=== PATIENT | male | born 1940 | race Caucasian/White ===

== ENCOUNTER 2017-05-19 12:29 | Inpatient (IN) | payer MEDICARE, BC, OTHER ==
[~2017-05-19] VITALS: Ht 170.2 cm; Wt 122.7 kg
[2017-05-19] MEDS: PANTOPRAZOLE 40MG INJ (PROTONIX) (C9113) IV SCH (09:00)
[2017-05-19] MEDS: ENOXAPARIN 40 MG/0.4 ML SYRINGE (J1650) SC SCH (09:00)
[2017-05-19] MEDS ORDERED: LEVI20TA39 PO (12:42)
[2017-05-19] MEDS ORDERED: CAND16TA7 PO (12:42)
[2017-05-19] MEDS ORDERED: METF500T13 PO (12:42)
[2017-05-19] MEDS ORDERED: SIMV20TA2 PO (12:42)
[2017-05-19] MEDS ORDERED: TRIA37.53 PO (12:42)
[2017-05-19] MEDS ORDERED: FLOM5CAP PO (12:42)
[2017-05-19] MEDS ORDERED: NS 1,000 ML IV ONE (13:15)
[2017-05-19] MEDS ORDERED: ONDANSETRON 4MG/2ML VIAL (J2405) IV ONE (13:15)
[2017-05-19] MEDS ORDERED: GASTROGRAFIN SOLUTION 30ML (Q9963) As Ordered ONE (13:36)
[2017-05-19 13:49] LABS: BASO % 0.5 % (0.0-1.0); EOS # 0.1 K/mm3 (0.0-0.50); EOS % 1.4 % (0.0-3.0); LARGE UNSTAINED CELL # 0.2 K/mm3 (0.0-0.4); LARGE UNSTAINED CELL % 2.9 % (0.0-4.0); LYMPH # 1.7 K/mm3 (1.5-4.5); LYMPH % 24.2 % (24.0-44.0); MEAN CORPUSCULAR HEMOGLOBIN 33.5 pg (27.0-33.0); MEAN CORPUSCULAR HGB CONC 35.6 g/dl (32.0-36.5); MEAN CORPUSCULAR VOLUME 94.1 fl (80.0-96.0); MONO # 0.8 K/mm3 (0.0-0.8); MONO % 10.9 % (0.0-5.0); NEUTROPHILS # 4.2 K/mm3 (1.8-7.7); NEUTROPHILS % 60.2 % (36.0-66.0); PLATELET COUNT, AUTOMATED 254 k/mm3 (150-450); RED CELL DISTRIBUTION WIDTH 12.1 % (11.5-14.5); WHITE BLOOD COUNT 6.9 K/mm3 (4.0-10.0)
[2017-05-19 14:23] LABS: ALBUMIN 3.6 GM/DL (3.2-5.2); ALBUMIN/GLOBULIN RATIO 0.86 (1.00-1.93); ALKALINE PHOSPHATASE 59 U/L (45-117); ALT/SGPT 44 U/L (12-78); ANION GAP 8 MEQ/L (8-16); AST/SGOT 17 U/L (15-37); BILIRUBIN,DIRECT 0.2 MG/DL (0.0-0.2); BILIRUBIN,TOTAL 0.5 MG/DL (0.2-1.0); BLOOD UREA NITROGEN 17 MG/DL (7-18); CALCIUM LEVEL 8.6 MG/DL (8.8-10.2); CARBON DIOXIDE LEVEL 26 MEQ/L (21-32); CHLORIDE LEVEL 102 MEQ/L (98-107); CREATININE FOR GFR 0.96 MG/DL (0.70-1.30); GLOMERULAR FILTRATION RATE > 60.0 (>42); GLUCOSE, FASTING 135 MG/DL (83-110); POTASSIUM SERUM 3.8 MEQ/L (3.5-5.1); SODIUM LEVEL 136 MEQ/L (136-145); TOTAL PROTEIN 7.8 GM/DL (6.4-8.2)
[2017-05-19] MEDS ORDERED: GASTROGRAFIN SOLUTION 30ML (Q9963) PO ONE ×2 (14:30)
[2017-05-19] MEDS ORDERED: ISOVUE-370 76% 100ML VIAL (Q9967) As Ordered ONE (14:42)
--- NOTE | 2017-05-19 15:55 | REP ---
CT ABDOMEN AND PELVIS WITH ORAL AND IV CONTRAST: TECHNIQUE: Axial noncontrast images through the abdomen followed by contrast-enhanced images through the abdomen and pelvis using 100 mL Isovue 370 intravenous contrast material, with coronal and sagittal reformations. Visualized lung bases demonstrate no infiltrate. The liver demonstrates diffuse fatty infiltration. Patient has had a prior cholecystectomy. A tiny calcified granuloma is seen in the spleen, Adrenals, pancreas and kidneys are unremarkable. There is no hydronephrosis. There is no abdominal aortic aneurysm with mild atherosclerotic calcifications noted. There is no adenopathy, free air, or free fluid. There are several mildly dilated small bowel loops on both sides of the abdomen. This may indicate some degree of ileus or partial small bowel obstruction. The colon is not thickened or dilated. No pelvic mass is seen. There appears to be a small left inguinal hernia containing fat and a small amount of fluid. IMPRESSION: Several mildly dilated small bowel loops in the abdomen may indicate some degree of small bowel ileus versus partial small bowel obstruction. No free air or free fluid. Signed by Fernandez Sarah MD 05/19/2017 05:10 P
[2017-05-19] MEDS ORDERED: ACETAMINOPHEN TAB 650MG DOSE (2X325MG) PO PRN (17:00)
[2017-05-19] MEDS ORDERED: ONDANSETRON 4MG/2ML VIAL (J2405) IV PRN (17:00)
[2017-05-19] MEDS ORDERED: ASPI1TAB PO (17:19)
[2017-05-19] MEDS ORDERED: VITA-121 PO (17:19)
[2017-05-19] MEDS ORDERED: CINN500T PO (17:19)
[2017-05-19] MEDS ORDERED: MAGN400T5 PO (17:19)
[2017-05-19] MEDS ORDERED: VITMTA PO (17:19)
[2017-05-19 19:50] VITALS: BP 136/96
[2017-05-19] MEDS: LR 1,000 ML IV SCH (21:42)
[2017-05-19] MEDS: MORPHINE 2 MG/ML 1ML SYRINGE IV PRN (21:42)
[2017-05-19 22:00] VITALS: BP 130/76
[2017-05-20] MEDS: LR 1,000 ML IV SCH ×3 (00:57→14:37)
[2017-05-20] MEDS: MORPHINE 2 MG/ML 1ML SYRINGE IV PRN (05:26)
[2017-05-20 06:00] VITALS: BP 148/73
--- NOTE | 2017-05-20 08:19 | IPNPDOC ---
Subjective General Date/Time Seen The patient was seen on 05/20/17 at 08:13. Subject Chief Complaint/History The patient is a 77-year-old male admitted with a reason for visit of Partial Small Bowel Obstruction. Reports feeling better, passing flatus, have an urge to go to bathroom and move his bowels. Denies nausea. Reports pain and swelling on right hand from gout. Current Medications Current Medications Current Medications Acetaminophen (Tylenol Tab) 650 mg Q4HP PRN PO MILD PAIN or TEMP > 101; Start 05/19/17 at 17:00; Stop 06/18/17 at 16:59 Enoxaparin Sodium (Lovenox) 40 mg DAILY SC ; Start 05/19/17 at 09:00; Stop 05/24 at 08:59 Home Med (Med Rec Complete!) ASDIRECTED XX ; Start 05/19/17 at 17:30; Stop 08/26 at 17:42; Status DC Lactated Ringer's 1,000 ml @ 125 mls/hr Q8H IV Last administered on 05/19/17t 21:42; Start 05/19/17 at 16:57; Stop 06/18/17 at 16:56 Morphine Sulfate (Morphine Sulfate Inj) 2 mg Q2HP PRN IV SEVERE PAIN (PS 8-10) Last administered on 05/20/17t 05:26; Start 05/19/17 at 17:00; Stop 05/26/17 at 16:59 Ondansetron HCl (ZOFRAN INJection) 4 mg Q6HP PRN IV NAUSEA OR VOMITING; Start 05/19/17 at 17:00; Stop 06/18/17 at 16:59 Pantoprazole Sodium (Protonix) 40 mg DAILY IV ; Start 05/19/17 at 09:00; Stop at 08:59 Allergies Coded Allergies: Codeine (Verified Adverse Reaction, Intermediate, HEART FLUTTERS, 05/19/17) Objective Physical Examination Examination GENERAL APPEARANCE:Patient seen, laying in bed, awake, alert, and oriented. Comfortable, in no acute distress. SKIN: Warm and moist. HEENT: Normocephalic, atraumatic. [place] palpebral conjunctiva, anicteric sclerae. Lips and mucosa appear moist NGT in place, working. draining bilious fluid.. NECK: Supple, no thyromegaly. No obvious jugular venous distention. LUNGS: Clear to auscultation bilaterally. No wheezing appreciated. HEART: No chest wall abnormalities. Regular rate and rhythm with no murmurs appreciated. ABDOMEN: Abdomen is round, soft, mildly distended. Hyperactive bowel sounds. Nontender on palpation.. [No hepatosplenomegaly. No umbilical or groin herniations, nondistended. No noticeable rebound or guarding. No grimacing with palpation. No rebound EXTREMITIES:Right first digit metatrasal and medial wrist swollen and mildly tender with decreased range of motion. No erythema, no crepitus.. Vital Signs Vital Signs Date Time Temp Pulse Resp B/P (MAP) Pulse Ox O2 Delivery O2 Flow Rate FiO2 05/20/17 06:23 16 05/20/17 06:00 98.3 65 148/73 (98) 95 Room Air I&Os I&O- Last 24 Hours up to 6 AM 05/20/17 06:00 Intake Total 1000 ml Balance 1000 ml Laboratory Data Labs 24H Laboratory Tests 2 05/19/17 13:32: White Blood Count 6.9, Red Blood Count 4.85, Hemoglobin 16.2, Hematocrit 45.6, Mean Corpuscular Volume 94.1, Mean Corpuscular Hemoglobin 33.5H, Mean Corpuscular Hemoglobin Concent 35.6, Red Cell Distribution Width 12.1, Platelet Count 254, Neutrophils (%) (Auto) 60.2, Lymphocytes (%) (Auto) 24.2, Monocytes ( %) (Auto) 10.9H, Eosinophils (%) (Auto) 1.4, Basophils (%) (Auto) 0.5, Neutrophils # (Auto) 4.2, Lymphocytes # (Auto) 1.7, Monocytes # (Auto) 0.8, Eosinophils # (Auto) 0.1, Basophils # (Auto) 0.0, Large Unclassified Cells % 2.9 , Large Unclassified Cells # 0.2, Anion Gap 8, Glomerular Filtration Rate > 60.0 , Lactic Acid Level 1.1, Calcium Level 8.6L, Aspartate Amino Transf (AST/SGOT) 17, Alanine Aminotransferase (ALT/SGPT) 44, Alkaline Phosphatase 59, Total Bilirubin 0.5, Direct Bilirubin 0.2, Total Protein 7.8, Albumin 3.6, Albumin/ Globulin Ratio 0.86L, Lipase 71L CBC/BMP Laboratory Tests 7/10/17 13:32 Red Blood Count 4.85, Mean Corpuscular Volume 94.1, Mean Corpuscular Hemoglobin 33.5 H, Mean Corpuscular Hemoglobin Concent 35.6, Red Cell Distribution Width 12.1, Neutrophils (%) (Auto) 60.2, Lymphocytes (%) (Auto) 24.2, Monocytes (%) ( Auto) 10.9 H, Eosinophils (%) (Auto) 1.4, Basophils (%) (Auto) 0.5, Neutrophils # (Auto) 4.2, Lymphocytes # (Auto) 1.7, Monocytes # (Auto) 0.8, Eosinophils # ( Auto) 0.1, Basophils # (Auto) 0.0 Impression small bowel obstruction from adhesion improving Acute gout, right hand Morbid obesity Will clamp ngt and see if he tolerates this. He has some urge to go to the bathroom now. He will try to move his bowels. He was advised to ambulate to hallways. We will get a follow up xr prior to removal For the gout will start on NSAIDs (toradol) and ice pack to area. will check urate Plan / VTE VTE Prophylaxis Ordered?: Yes NEO CORNELIUS MD May 20, 2017 08:19
[2017-05-20] MEDS: ENOXAPARIN 40 MG/0.4 ML SYRINGE (J1650) SC SCH (08:27)
[2017-05-20] MEDS: PANTOPRAZOLE 40MG INJ (PROTONIX) (C9113) IV SCH (08:27)
--- NOTE | 2017-05-20 10:56 | REP ---
ABDOMEN, FLAT AND UPRIGHT, PA CHEST, THREE VIEW: HISTORY: Bowel obstruction. COMPARISON: CT 05/19/2017 Contrast material is present in the colon from a recent CT examination. Air is present in small and large intestine. There are several dilated loops of small intestine. Severe air fluid levels are present. There is no pneumoperitoneum. An NG tube is present. The lungs are clear. IMPRESSION: The above findings are consistent with ileus or partial small bowel obstruction. The number of dilated loops of small intestine is slightly decreased. Signed by Yannick Herman MD 05/20/2017 11:16 A
--- NOTE | 2017-05-20 11:03 | HPEPDOC ---
General Surgery H&P Date of Admission History and Physical CHIEF COMPLAINT: Abdominal pain, nausea, vomiting HISTORY OF PRESENT ILLNESS: Patient is a 77-year-old gentleman who presented himself to the emergency room yesterday afternoon about a 4 day history of ongoing crampy epigastric abdominal pain associated with nausea, vomiting. This has started roughly Friday morning. This started abruptly. He felt fine the day prior. He denies any new exposures. He's had several abdominal surgeries which includes open cholecystectomy, open appendectomy, open umbilical hernia repair, open left inguinal hernia repair. He reports prior episodes of bowel obstruction not requiring any surgery. For the past several months has had multiple recurrences. Started October of last year for which she was admitted [facility] and immediately got better after an overnight stay without need for nasogastric tube decompression. This recurred sometime early this year but did not require any hospitalization as it got better after a few hours. As mentioned this started last Friday slightly got worse over Friday. Patient felt like he was getting better Friday but yesterday started having nausea and vomiting again. He has had intermittent small bowel movements during this time. He reports intermittent flatus. ALLERGIES: Please see below. HOME MEDICATIONS: Please see below. PAST MEDICAL HISTORY: 1. Hypertension 2. Prediabetes 3. Morbid obesity 4. Gout 5. Previous small bowel obstruction PAST SURGICAL HISTORY: 1. Open appendectomy more than 20 years ago 2. Open cholecystectomy via a right subcostal incision 3 open umbilical hernia repair. Patient thinks a mesh was placed during the repair 4. Open left inguinal hernia repair. PERSONAL/SOCIAL HISTORY: Denies smoking, or recreational drug use. Occasional alcohol use. REVIEW OF SYSTEMS: GENERAL: Denies chills, fatigue, fever, weight gain and weight loss. HEENT: Denies blurred vision and double vision. Denies ear symptoms. Denies hoarseness. NECK: Denies any neck pain. CARDIOVASCULAR: Denies chest pain and palpitations. MUSCULOSKELETAL: Reports prior history of gout. He usually gets it over his foot area. This time around reports overnight swelling of the right first metatarsal and medial wrist area. SKIN: Denies rash. NEUROLOGIC: Denies headache, stroke and transient ischemic attack. PSYCHIATRIC: Denies anxiety and depression. ENDOCRINE: Denies thyroid disease. HEMATOLOGY/ONCOLOGY: Denies any bleeding or clotting disorder. HEART: Denies any chest pains, palpitations, paroxysmal dyspnea, orthopnea. PULMONARY: Denies chronic cough, dyspnea and wheezing. GASTROINTESTINAL: Denies rectal bleeding, family history of colon cancer, constipation, diarrhea, dysphagia, heartburn and jaundice previous history of bowel obstruction. GENITOURINARY: Denies dysuria, frequency, hematuria and nocturia. ENDOCRINE: Denies polydipsia, polyphagia, polyuria, heat or cold intolerance. INFECTIOUS: Denies any recent upper respiratory tract infection, UTI, need for use of antibiotics. NUTRITION: Reports good appetite. PHYSICAL EXAMINATION: VITAL SIGNS: Please see below. GENERAL APPEARANCE: Patient seen at bedside, appears comfortable. Awake, alert, oriented. HEENT: Normocephalic, atraumatic. [place] palpebral conjunctivae. Anicteric sclerae. Lips moist nasogastric tube in place him appears to be working. There is about 600 MLS of thick bilious fluid in the canister overnight.. CHEST: No chest wall abnormalities. Normal respiratory motion/effort. NECK: Supple. No thyromegaly. No lymphadenopathies. LUNGS: Lung sounds are clear to auscultation bilaterally. No wheezing appreciated. HEART: No chest wall abnormalities. Heart rate and rhythm are regular with no murmurs. ABDOMEN: Abdomen is obese, soft, moderately rounded, mildly distended. Hyperactive bowel sounds. Multiple surgical scars including right subcostal incision, right oblique lower quadrant incision from the appendectomy, transverse umbilical incision, the left groin incision. No hepatosplenomegaly. No umbilical or groin herniations, nondistended. No noticeable rebound or guarding. No grimacing with palpation. No rebound tenderness. No masses appreciated. SKIN: Warm, moist. EXTREMITIES: Extremities have no deformities. No edema identified. NEUROLOGICAL: awake, alert, oriented ANCILLARIES: . LABORATORY DATA: Please see below. MICROBIOLOGY: Please see below. IMAGING: CT abdomen and pelvis . Several mildly dilated small bowel loops in the abdomen may indicate some degree of small bowel ileus versus partial small bowel obstruction. No free air or free fluid. IMPRESSION AND PLAN: Small bowel obstruction, partial Morbid obesity Acute gout attack Hypertension 1. Patient has been having recurrent obstruction probably related to adhesions from his multiple previous abdominal surgeries. This seems to resolve either by itself or with a few interventions. When he was admitted [facility], he did not need any nasogastric tube decompression. This time around the nasogastric tube has been placed and this seems to adequately improved his symptoms. There are no signs or symptoms of back and bowel or bowel ischemia. We will see how he does with nonoperative treatment. He seems to be adequately hydrated at this point. Reviewed all his meds. We will add some Toradol for the acute gout attack area Vital Signs Vital Signs Date Time Temp Pulse Resp B/P (MAP) Pulse Ox O2 Delivery O2 Flow Rate FiO2 05/19/17 13:45 05/19/17 12:30 98.7 73 18 95 Room Air Laboratory Data Labs 24H Laboratory Tests 2 05/19/17 13:32: White Blood Count 6.9, Red Blood Count 4.85, Hemoglobin 16.2, Hematocrit 45.6, Mean Corpuscular Volume 94.1, Mean Corpuscular Hemoglobin 33.5H, Mean Corpuscular Hemoglobin Concent 35.6, Red Cell Distribution Width 12.1, Platelet Count 254, Neutrophils (%) (Auto) 60.2, Lymphocytes (%) (Auto) 24.2, Monocytes ( %) (Auto) 10.9H, Eosinophils (%) (Auto) 1.4, Basophils (%) (Auto) 0.5, Neutrophils # (Auto) 4.2, Lymphocytes # (Auto) 1.7, Monocytes # (Auto) 0.8, Eosinophils # (Auto) 0.1, Basophils # (Auto) 0.0, Large Unclassified Cells % 2.9 , Large Unclassified Cells # 0.2, Anion Gap 8, Glomerular Filtration Rate > 60.0 , Lactic Acid Level 1.1, Calcium Level 8.6L, Aspartate Amino Transf (AST/SGOT) 17, Alanine Aminotransferase (ALT/SGPT) 44, Alkaline Phosphatase 59, Total Bilirubin 0.5, Direct Bilirubin 0.2, Total Protein 7.8, Albumin 3.6, Albumin/ Globulin Ratio 0.86L, Lipase 71L CBC/BMP Laboratory Tests 05/19/17 13:32 Red Blood Count 4.85, Mean Corpuscular Volume 94.1, Mean Corpuscular Hemoglobin 33.5 H, Mean Corpuscular Hemoglobin Concent 35.6, Red Cell Distribution Width 12.1, Neutrophils (%) (Auto) 60.2, Lymphocytes (%) (Auto) 24.2, Monocytes (%) ( Auto) 10.9 H, Eosinophils (%) (Auto) 1.4, Basophils (%) (Auto) 0.5, Neutrophils # (Auto) 4.2, Lymphocytes # (Auto) 1.7, Monocytes # (Auto) 0.8, Eosinophils # ( Auto) 0.1, Basophils # (Auto) 0.0 Home Medications Scheduled Aspirin (Aspirin 81) 81 Mg Tab, 81 MG PO DAILY, (Reported) Candesartan Cilexetil (Candesartan Cilexetil) 16 Mg Tab, 16 MG PO DAILY, ( Reported) Cholecalciferol (Vitamin D-3) 1,000 Unit Tab, 1,000 UNIT PO DAILY, (Reported) Cinnamon Bark (Cinnamon) 500 Mg Tab, 500 MG PO BID, (Reported) Hydrochlorothiazide W/Triamter (Triamterene/Hydrochloroth 37.5-25 mg) 1 Cap Cap , 1 CAP PO DAILY, (Reported) Magnesium Oxide (Magnesium Oxide 400) 400 Mg Tab, 400 MG PO DAILY, (Reported) Metformin Hydrochloride (Metformin HCl) 500 Mg Tab, 500 MG PO DAILY, (Reported) Multivitamins *[facility] STOCKED* (Thera M Plus *[facility] STOCKED*) 1 Tab Tab, 1 TAB PO DAILY, (Reported) Simvastatin (Simvastatin) 20 Mg Tab, 20 MG PO DAILY, (Reported) Tamsulosin Hydrochloride (Flomax) 0.4 Mg Cap, 0.4 MG PO DAILY, (Reported) Scheduled PRN Vardenafil Hydrochloride (Levitra) 20 Mg Tab, 20 MG PO for ERECTILE DYSFUNCTION, (Reported) Allergies Coded Allergies: Codeine (Verified Adverse Reaction, Intermediate, HEART FLUTTERS, 05/19/17) NEO CORNELIUS MD May 19, 2017 16:56
[2017-05-20] MEDS: KETOROLAC 30 MG/ML VIAL (J1885) IV SCH ×3 (12:28→23:41)
[2017-05-20 14:00] VITALS: BP 156/79
[2017-05-20 22:00] VITALS: BP 152/74
[2017-05-21] MEDS: LR 1,000 ML IV SCH ×2 (00:57→08:51)
[2017-05-21] MEDS: KETOROLAC 30 MG/ML VIAL (J1885) IV SCH ×2 (05:03→12:59)
[2017-05-21 06:00] VITALS: BP 145/80
[2017-05-21 06:50] LABS: BASO % 0.3 % (0.0-1.0); EOS # 0.2 K/mm3 (0.0-0.50); EOS % 2.2 % (0.0-3.0); LARGE UNSTAINED CELL # 0.2 K/mm3 (0.0-0.4); LYMPH % 26.6 % (24.0-44.0); MEAN CORPUSCULAR HEMOGLOBIN 32.5 pg (27.0-33.0); MEAN CORPUSCULAR HGB CONC 33.7 g/dl (32.0-36.5); MEAN CORPUSCULAR VOLUME 96.3 fl (80.0-96.0); MONO # 0.5 K/mm3 (0.0-0.8); MONO % 7.2 % (0.0-5.0); NEUTROPHILS # 4.1 K/mm3 (1.8-7.7); NEUTROPHILS % 60.6 % (36.0-66.0); PLATELET COUNT, AUTOMATED 233 k/mm3 (150-450); RED CELL DISTRIBUTION WIDTH 12.3 % (11.5-14.5); WHITE BLOOD COUNT 6.8 K/mm3 (4.0-10.0)
[2017-05-21 06:55] LABS: ANION GAP 5 MEQ/L (8-16); BLOOD UREA NITROGEN 18 MG/DL (7-18); CALCIUM LEVEL 8.2 MG/DL (8.8-10.2); CARBON DIOXIDE LEVEL 26 MEQ/L (21-32); CHLORIDE LEVEL 107 MEQ/L (98-107); CREATININE FOR GFR 0.91 MG/DL (0.70-1.30); GLOMERULAR FILTRATION RATE > 60.0 (>42); GLUCOSE, FASTING 168 MG/DL (83-110); POTASSIUM SERUM 3.5 MEQ/L (3.5-5.1); SODIUM LEVEL 138 MEQ/L (136-145); URIC ACID 7.8 MG/DL (3.5-7.2)
[2017-05-21] MEDS: PANTOPRAZOLE 40MG INJ (PROTONIX) (C9113) IV SCH (08:50)
[2017-05-21] MEDS: ENOXAPARIN 40 MG/0.4 ML SYRINGE (J1650) SC SCH (08:50)
--- NOTE | 2017-05-21 08:51 | IPNPDOC ---
Subjective General Date/Time Seen The patient was seen on 05/21/17 at 08:47. Subject Chief Complaint/History The patient is a 77-year-old male admitted with a reason for visit of Partial Small Bowel Obstruction. He has regained bowel function yesterday. Nasogastric tube was discontinued. He tolerated clear liquids overnight. He is having loose stools this morning. Current Medications Current Medications Current Medications Acetaminophen (Tylenol Tab) 650 mg Q4HP PRN PO MILD PAIN or TEMP > 101; Start 05/19/17 at 17:00; Stop 06/18/17 at 16:59 Enoxaparin Sodium (Lovenox) 40 mg DAILY SC Last administered on 05/20/17 08:27 ; Start 05/19/17 at 09:00; Stop 05/24/17 at 08:59 Home Med (Med Rec Complete!) ASDIRECTED XX ; Start 05/19/17 at 17:30; Stop 08/26 at 17:42; Status DC Ketorolac Tromethamine (ToRADol) 15 mg Q6H IV Last administered on 05/21/17 05 :03; Start 05/20/17 at 12:00; Stop 05/22/17 at 11:59 Lactated Ringer's 1,000 ml @ 125 mls/hr Q8H IV Last administered on 05/21/17 00:57; Start 05/19/17 at 16:57; Stop 06/18/17 at 16:56 Morphine Sulfate (Morphine Sulfate Inj) 2 mg Q2HP PRN IV SEVERE PAIN (PS 8-10) Last administered on 05/20/17 05:26; Start 05/19/17 at 17:00; Stop 05/26/17 at 16:59 Ondansetron HCl (ZOFRAN INJection) 4 mg Q6HP PRN IV NAUSEA OR VOMITING; Start 05/19/17 at 17:00; Stop 06/18/17 at 16:59 Pantoprazole Sodium (Protonix) 40 mg DAILY IV Last administered on 05/20/17 08 :27; Start 05/19/17 at 09:00; Stop 06/18/17 at 08:59 Allergies Coded Allergies: Codeine (Verified Adverse Reaction, Intermediate, HEART FLUTTERS, 05/19/17) Objective Physical Examination Examination GENERAL APPEARANCE: Comfortable SKIN: Warm and moist. HEENT: Normocephalic, atraumatic. [place] palpebral conjunctiva, anicteric sclerae. Lips and mucosa appear moist. NECK: Supple, no thyromegaly. No obvious jugular venous distention. LUNGS: Clear to auscultation bilaterally. No wheezing appreciated. HEART: No chest wall abnormalities. Regular rate and rhythm with no murmurs appreciated. ABDOMEN: Abdomen is round, soft, nondistended, nontender and palpation, active bowel sounds. EXTREMITIES: Swelling over the right first metatarsal resolved Vital Signs Vital Signs Date Time Temp Pulse Resp B/P (MAP) Pulse Ox O2 Delivery O2 Flow Rate FiO2 05/21/17 06:00 97.6 59 18 145/80 (101) 96 Room Air I&Os I&O- Last 24 Hours up to 6 AM 05/21/17 05:59 Intake Total 2336 ml Output Total 775 ml Balance 1561 ml 3 bowel movements yesterday, 2 overnight Laboratory Data Labs 24H Laboratory Tests 2 05/21/17 06:13: White Blood Count 6.8, Red Blood Count 4.11L, Hemoglobin 13.4#L, Hematocrit 39.6L, Mean Corpuscular Volume 96.3H, Mean Corpuscular Hemoglobin 32.5, Mean Corpuscular Hemoglobin Concent 33.7, Red Cell Distribution Width 12.3, Platelet Count 233, Neutrophils (%) (Auto) 60.6, Lymphocytes (%) (Auto) 26.6, Monocytes ( %) (Auto) 7.2H, Eosinophils (%) (Auto) 2.2, Basophils (%) (Auto) 0.3, Neutrophils # (Auto) 4.1, Lymphocytes # (Auto) 2.0, Monocytes # (Auto) 0.5, Eosinophils # (Auto) 0.2, Basophils # (Auto) 0.0, Large Unclassified Cells % 3.0 , Large Unclassified Cells # 0.2, Anion Gap 5L, Glomerular Filtration Rate > 60.0, Uric Acid 7.8H, Blood Urea Nitrogen 18, Creatinine 0.91, Sodium Level 138 , Potassium Level 3.5, Chloride Level 107, Carbon Dioxide Level 26, Calcium Level 8.2L CBC/BMP Laboratory Tests 05/21/17 06:13 Red Blood Count 4.11 L, Mean Corpuscular Volume 96.3 H, Mean Corpuscular Hemoglobin 32.5, Mean Corpuscular Hemoglobin Concent 33.7, Red Cell Distribution Width 12.3, Neutrophils (%) (Auto) 60.6, Lymphocytes (%) (Auto) 26.6, Monocytes (%) (Auto) 7.2 H, Eosinophils (%) (Auto) 2.2, Basophils (%) ( Auto) 0.3, Neutrophils # (Auto) 4.1, Lymphocytes # (Auto) 2.0, Monocytes # (Auto ) 0.5, Eosinophils # (Auto) 0.2, Basophils # (Auto) 0.0, Calcium Level 8.2 L Impression Partial small bowel obstruction, resolved Acute gout attack resolved Morbid obesity Hypertension We'll advance his diet. I think he will be able to tolerate this and would be okay to go home. We discussed instances when the surgery would be recommended. He's had recurrent bouts of bowel obstruction since October of last year, has had 3. If he has recurrence within the next month or so, would probably recommend performing lysis of adhesions at that time. Reviewing his CAT scan, most likely it will be right where his previous appendectomy incision is. His right hand swelling is resolved. His uric acid is mildly elevated. Advised him to discuss this with his primary care doctor. Plan / VTE VTE Prophylaxis Ordered?: Yes NEO CORNELIUS MD May 21, 2017 08:51
[2017-05-21 14:00] VITALS: BP 184/79
--- NOTE | 2017-05-23 07:50 | DS.PDOC ---
Discharge Summary General Date of Admission May 19, 2017 at 16:57 Date of Discharge May 21, 2017 Attending Physician: NEO CORNELIUS MD Discharge Summary PROCEDURES PERFORMED DURING STAY: [None]. ADMITTING DIAGNOSES: 1. .partial small bowel obstruction secondary to adhesions 2. morbid obesity. DISCHARGE DIAGNOSES: 1. partial small bowel obstructions secondary to adhesions 2. morbid obesity. 3. acute gout attack, right hand, improved 4. hyperuricemia. COMPLICATIONS/CHIEF COMPLAINT: Partial Small Bowel Obstruction. HISTORY OF PRESENT ILLNESS: see HPI HOSPITAL COURSE: Patient was seen at the emergency room and found to have evidence for small bowel obstruction. A NGT was placed for bowel decomopression. His labs were within normal on admission including normal WBC, BUN, Cr. He immediately improved after a short period of bowel decompression. He started passing flatus the following morning. He noted acute swelling of the base of the first finger on the right hand consistent with his history of acute gout. He was given Toradol and ice packs to address this. The NGT was clamped and later on discontinued after he tolerated this for 6 hours. He was started on liquids and later advanced to regular diet which he also tolerated. His right hand swelling improved the folowing morning. He was found to have mild hyperuricemia on labs. DISCHARGE MEDICATIONS: Please see below. ALLERGIES: Please see below. PHYSICAL EXAMINATION ON DISCHARGE: VITAL SIGNS: Please see below. GENERAL: comfortable HEENT: atraumatic, pink palpebral conjunctiva NECK: supple, no jugular venous distention CARDIOVASCULAR EXAMINATION: regular heart rate and rhythm RESPIRATORY EXAMINATION: clear breath sounds ABDOMINAL EXAMINATION: moderately obese, round, soft , nondistended, nontender to palpation EXTREMITIES: previous right hand swelling and discomfort resolved SKIN: normal NEUROLOGICAL EXAMINATION: awake, alert, oriented LABORATORY DATA: Please see below. PROGNOSIS: good ACTIVITY: As tolerated. DIET: as tolerated. DISCHARGE PLAN: Patient will be discharged home. Discussion done regarding possibility of recurrence of his symptoms and for patient to return to the hospital if it does. He has had recurrent symptoms and if the next bout is close to this one, would consider surgery at that time. DISPOSITION: 01 Home, Self-Care. DISCHARGE INSTRUCTIONS: Follow up as needed DISCHARGE CONDITION: [Stable]. TIME SPENT ON DISCHARGE: Greater than 30 minutes. Vital Signs/I&Os Vital Signs Date Time Temp Pulse Resp B/P (MAP) Pulse Ox O2 Delivery O2 Flow Rate FiO2 7/12/17 14:00 97.9 56 20 184/79 (114) 93 Room Air Discharge Medications Scheduled Aspirin (Aspirin 81) 81 Mg Tab, 81 MG PO DAILY, (Reported) Candesartan Cilexetil (Candesartan Cilexetil) 16 Mg Tab, 16 MG PO DAILY, ( Reported) Cholecalciferol (Vitamin D-3) 1,000 Unit Tab, 1,000 UNIT PO DAILY, (Reported) Cinnamon Bark (Cinnamon) 500 Mg Tab, 500 MG PO BID, (Reported) Hydrochlorothiazide W/Triamter (Triamterene/Hydrochloroth 37.5-25 mg) 1 Cap Cap , 1 CAP PO DAILY, (Reported) Magnesium Oxide (Magnesium Oxide 400) 400 Mg Tab, 400 MG PO DAILY, (Reported) Metformin Hydrochloride (Metformin HCl) 500 Mg Tab, 500 MG PO DAILY, (Reported) Multivitamins *[facility] STOCKED* (Thera M Plus *[facility] STOCK[facility]*) 1 Tab Tab, 1 TAB PO DAILY, (Reported) Simvastatin (Simvastatin) 20 Mg Tab, 20 MG PO DAILY, (Reported) Tamsulosin Hydrochloride (Flomax) 0.4 Mg Cap, 0.4 MG PO DAILY, (Reported) Scheduled PRN Vardenafil Hydrochloride (Levitra) 20 Mg Tab, 20 MG PO for ERECTILE DYSFUNCTION, (Reported) Allergies Coded Allergies: Codeine (Verified Adverse Reaction, Intermediate, HEART FLUTTERS, 05/19/17) NEO CORNELIUS MD May 23, 2017 07:41
== END 2017-05-21 16:10 | disposition home or self-care (01) | DRG 389 ==
LOC: M ED 12:29 → M ED INP 16:57 → M MS5PR 19:40
PROVIDERS: ADMIT Surgery; ATTEND Surgery
DX: K56.5 Intestinal adhesions [bands] with obstruction (postinfection) (principal); Z68.41 Body mass index [BMI] 40.0-44.9, adult; E66.01 Morbid (severe) obesity due to excess calories; I10 Essential (primary) hypertension; R73.03 Prediabetes; M10.031 Idiopathic gout, right wrist; M1A.0710 Idiopathic chronic gout, right ankle and foot, without tophus (tophi); M1A.0310 Idiopathic chronic gout, right wrist, without tophus (tophi); Z79.82 Long term (current) use of aspirin; Z79.84 Long term (current) use of oral hypoglycemic drugs; Z79.899 Other long term (current) drug therapy; Z88.5 Allergy status to narcotic agent

== ENCOUNTER 2018-06-07 15:02 | Observation (INO) | payer MEDICARE, BC, OTHER ==
[2018-06-07] MEDS: NS 1,000 ML IV (16:05)
[2018-06-07 16:10] LABS: BASO % 0.3 % (0.0-1.0); EOS # 0.1 10^3/uL (0.0-0.50); EOS % 1.1 % (0.0-3.0); HEMATOCRIT 51.1 % (42.0-52.0); HEMOGLOBIN 17.3 g/dl (13.5-17.5); IMMATURE GRANULOCYTE % 0.4 % (0-3.0); LYMPH # 1.5 10^3/uL (1.5-4.5); LYMPH % 15.5 % (24.0-44.0); MEAN CORPUSCULAR HEMOGLOBIN 31.6 pg (27.0-33.0); MEAN CORPUSCULAR HGB CONC 33.9 g/dl (32.0-36.5); MEAN CORPUSCULAR VOLUME 93.2 fl (80.0-96.0); MONO # 1.3 10^3/uL (0.0-0.8); MONO % 14.3 % (0.0-5.0); NEUTROPHILS # 6.4 10^3/uL (1.8-7.7); NEUTROPHILS % 68.4 % (36.0-66.0); PLATELET COUNT, AUTOMATED 323 10^3/uL (150-450); RED BLOOD COUNT 5.48 10^6/uL (4.30-6.10); RED CELL DISTRIBUTION WIDTH 12.2 % (11.5-14.5); WHITE BLOOD COUNT 9.4 10^3/uL (4.0-10.0)
[2018-06-07 16:25] LABS: KETONE, URINE AUTO RFX 1+ mg/dL (NEGATIVE); LEUKOCYTE ESTERASE UR AUTO RFX NEGATIVE (NEGATIVE); MUCUS, URINE RFX SMALL (NEGATIVE); NITRITE, URINE AUTO RFX NEGATIVE (NEGATIVE); RBC, URINE AUTO RFX 1 /HPF (0-3); SPECIFIC GRAVITY UR AUTO RFX 1.012 (1.002-1.035); SQUAM EPITHELIAL CELL UR AURFX 0 /HPF (0-6); WBC, URINE AUTO RFX 3 /HPF (0-3)
[2018-06-07 16:29] LABS: ALBUMIN 4.1 GM/DL (3.2-5.2); ALBUMIN/GLOBULIN RATIO 0.98 (1.00-1.93); ALKALINE PHOSPHATASE 63 U/L (45-117); ALT/SGPT 38 U/L (12-78); ANION GAP 9 MEQ/L (8-16); AST/SGOT 18 U/L (7-37); BILIRUBIN,DIRECT 0.2 MG/DL (0.0-0.2); BILIRUBIN,TOTAL 0.5 MG/DL (0.2-1.0); BLOOD UREA NITROGEN 18 MG/DL (7-18); CALCIUM LEVEL 8.8 MG/DL (8.8-10.2); CARBON DIOXIDE LEVEL 22 MEQ/L (21-32); CHLORIDE LEVEL 106 MEQ/L (98-107); CREATININE FOR GFR 1.01 MG/DL (0.70-1.30); GLOMERULAR FILTRATION RATE > 60.0 (>42); GLUCOSE, FASTING 150 MG/DL (70-100); LIPASE 78 U/L (73-393); SODIUM LEVEL 137 MEQ/L (136-145); TOTAL PROTEIN 8.3 GM/DL (6.4-8.2)
[2018-06-07] MEDS: MORPHINE 4 MG/ML 1ML VIAL/SYRINGE (J2270) IV ×2 (16:29→20:55)
[2018-06-07] MEDS: ONDANSETRON 4MG/2ML VIAL (J2405) IV (16:29)
[2018-06-07] MEDS ORDERED: ISOVUE-370 76% 100ML VIAL (Q9967) As Ordered (16:31)
[2018-06-07] MEDS: diphenhydrAMINE INJ 50MG/ML VIAL (J1200) IV (16:59)
[2018-06-07] MEDS ORDERED: MORPHINE 4 MG/ML 1ML VIAL/SYRINGE (J2270) IV (20:30)
[2018-06-07] MEDS ORDERED: ONDANSETRON 4MG/2ML VIAL (J2405) IV (20:30)
[2018-06-07] MEDS: LR 1,000 ML IV (22:48)
[2018-06-08] MEDS: LR 1,000 ML IV (06:37)
[2018-06-08 08:55] LABS: BASO % 0.4 % (0.0-1.0); EOS # 0.2 10^3/uL (0.0-0.50); EOS % 2.6 % (0.0-3.0); HEMATOCRIT 45.5 % (42.0-52.0); HEMOGLOBIN 15.4 g/dl (13.5-17.5); IMMATURE GRANULOCYTE % 0.6 % (0-3.0); LYMPH # 1.8 10^3/uL (1.5-4.5); LYMPH % 26.1 % (24.0-44.0); MEAN CORPUSCULAR HEMOGLOBIN 32.2 pg (27.0-33.0); MEAN CORPUSCULAR HGB CONC 33.8 g/dl (32.0-36.5); MONO # 1.1 10^3/uL (0.0-0.8); MONO % 15.2 % (0.0-5.0); NEUTROPHILS # 3.9 10^3/uL (1.8-7.7); NEUTROPHILS % 55.1 % (36.0-66.0); PLATELET COUNT, AUTOMATED 276 10^3/uL (150-450); RED BLOOD COUNT 4.79 10^6/uL (4.30-6.10); RED CELL DISTRIBUTION WIDTH 12.5 % (11.5-14.5); WHITE BLOOD COUNT 7.1 10^3/uL (4.0-10.0)
[2018-06-08] MEDS: PANTOPRAZOLE 40MG INJ (PROTONIX) (C9113) IV (09:02)
[2018-06-08 09:18] LABS: ANION GAP 10 MEQ/L (8-16); BLOOD UREA NITROGEN 19 MG/DL (7-18); CALCIUM LEVEL 8.1 MG/DL (8.8-10.2); CARBON DIOXIDE LEVEL 21 MEQ/L (21-32); CHLORIDE LEVEL 108 MEQ/L (98-107); CREATININE FOR GFR 1.06 MG/DL (0.70-1.30); GLOMERULAR FILTRATION RATE > 60.0 (>42); GLUCOSE, FASTING 115 MG/DL (70-100); SODIUM LEVEL 139 MEQ/L (136-145)
[2018-06-08] MEDS: ACETAMINOPHEN TAB 650MG DOSE (2X325MG) PO (13:21)
[2018-06-08] MEDS: KETOROLAC 30 MG/ML VIAL (J1885) IV (14:10)
== END 2018-06-08 18:10 | disposition home or self-care (01) ==
LOC: M ED 15:02 → M ED INP 20:28 → M MSPAV 22:20
DX: R14.0 Abdominal distension (gaseous) (principal); R10.9 Unspecified abdominal pain; K56.600 Partial intestinal obstruction, unspecified as to cause; R19.7 Diarrhea, unspecified; I10 Essential (primary) hypertension; E11.9 Type 2 diabetes mellitus without complications; K21.9 Gastro-esophageal reflux disease without esophagitis; N40.0 Benign prostatic hyperplasia without lower urinary tract symptoms; G47.33 Obstructive sleep apnea (adult) (pediatric); Z88.8 Allergy status to other drugs, medicaments and biological substances; Z79.82 Long term (current) use of aspirin; Z79.899 Other long term (current) drug therapy
CPT/HCPCS: C9113

== ENCOUNTER 2025-03-07 10:19 | Emergency (ER) | payer MEDICARE, BC ==
[~2025-03-07] VITALS: Ht 170.2 cm; Wt 115.5 kg
[~2025-03-07 10:19] MED LIST: ASPI81TA26 PO; CAND16TA17 PO; CINN500T PO; JANU100T PO; LEVI20TA39 PO; MAGN400T5 PO; METF500T13 PO; SIMV20TA22 PO; TAMS-18 PO; TRIA37.577 PO; VITA-121 PO; VITMTA PO
[2025-03-07] MEDS ORDERED: GLIM4TAB5 PO (10:40)
[2025-03-07] MEDS ORDERED: JARD1TAB3 PO (10:40)
[2025-03-07] MEDS ORDERED: SEMA14TA2 PO (10:40)
[2025-03-07] MEDS ORDERED: LANTINJ4 SC (10:42)
[2025-03-07 11:46] LABS: BASO % 0.3 % (0.0-1.0); EOS % 0.2 % (0.0-3.0); HEMATOCRIT 48.8 % (42.0-52.0); HEMOGLOBIN 16.3 g/dl (13.5-17.5); LYMPH # 0.6 10^3/uL (1.5-5.0); MEAN CORPUSCULAR HEMOGLOBIN 32.6 pg (27.0-33.0); MEAN CORPUSCULAR HGB CONC 33.4 g/dl (32.0-36.5); MEAN CORPUSCULAR VOLUME 97.6 fl (80.0-96.0); MONO # 0.8 10^3/uL (0.0-0.8); MONO % 11.5 % (2.0-8.0); NEUTROPHILS # 5.2 10^3/uL (1.5-8.5); NEUTROPHILS % 78.4 % (36.0-66.0); PLATELET COUNT, AUTOMATED 280 10^3/uL (150-450); WHITE BLOOD COUNT 6.6 10^3/uL (4.0-10.0)
[2025-03-07 12:22] LABS: ALBUMIN 3.8 G/DL (3.2-5.2); BILIRUBIN,DIRECT 0.2 MG/DL (<0.4); BILIRUBIN,TOTAL 0.5 MG/DL (0.3-1.2); CREATININE FOR GFR 1.27 MG/DL (0.70-1.30); GLOMERULAR FILTRATION RATE 56.1 (>35); POTASSIUM SERUM 5.4 MMOL/L (3.5-5.1); TOTAL PROTEIN 7.4 G/DL (5.7-8.2)
[2025-03-07] MEDS ORDERED: ISOVUE-370 76% 100ML VIAL As Ordered ONE (14:52)
[2025-03-07] MEDS: ALBUTEROL SULFATE 2.5MG/0.5ML INH CONCENTRATE NEB SOLN NEB ONE (15:28)
[2025-03-07] MEDS: ACETAMINOPHEN *IV* 1,000 MG in IV 1 EA IV ONE (15:57)
[2025-03-07] MEDS: METOCLOPRAMIDE INJ 10MG/2ML VIAL IV ONE (15:57)
[2025-03-07] MEDS: NS (Normal Saline) 0.9% 1,000 ML IV ONE (16:34)
[2025-03-07] MEDS ORDERED: VENTAER INH (18:26)
[2025-03-07] MEDS ORDERED: ONDA-282 PO (18:26)
[2025-03-07 18:40] VITALS: BP 139/64; TEMP 98.4; O2SAT 94
== END 2025-03-07 18:40 | disposition home or self-care (01) ==
LOC: M ED 10:19 → EDBD 10:19 → M ED 18:40
DX: R11.2 Nausea with vomiting, unspecified (principal); R19.7 Diarrhea, unspecified; B34.8 Other viral infections of unspecified site; K76.0 Fatty (change of) liver, not elsewhere classified; E11.9 Type 2 diabetes mellitus without complications; I10 Essential (primary) hypertension; K21.9 Gastro-esophageal reflux disease without esophagitis; Z79.899 Other long term (current) drug therapy; Z88.5 Allergy status to narcotic agent; Z88.8 Allergy status to other drugs, medicaments and biological substances
CPT/HCPCS: 71260; 74177; 80048; 80076; 83690; 84132; 85025; 87486; 87581; 87633; 87798; 93005; 94640; 96365; 96366; 96375; 99284; J0131; J2765; Q9967